=== PATIENT | male | born 1985 | race Caucasian/White ===

== ENCOUNTER 2017-12-27 21:43 | Emergency (ER) | payer BC ==
[~2017-12-27] VITALS: Ht 167.6 cm; Wt 78.5 kg
--- NOTE | 2017-12-27 21:43 | NUR ---
PT BB C/O RIGHT SHOULDER DISLOCATION WHILE EXTENDING FOR SOMETHING IN HOUSE. PT STATED "I HAD SURGERY PREVIOUSLY AND 2 MONTHS AGO I DISLOCATED IT WELL" PAIN SHARP 01/22 VSS NAD A/OX4 ABLE TO MAKE NEEDS KNOWN.
--- NOTE | 2017-12-27 21:45 | NUR ---
ER MD CHUA AT BEDSIDE FOR EVAL
--- NOTE | 2017-12-27 22:15 | NUR ---
RETORT FEEDER GROUND BONE AT BEDSIDE
[2017-12-27] MEDS ORDERED: PROPOFOL 200 MG/20 ML VIAL IV ONE (22:30)
[2017-12-27] MEDS ORDERED: IBUPROFEN 400 MG TABLET ONE (22:44)
[2017-12-27] MEDS ORDERED: IBUPROFEN 400 MG TABLET PO ONE (23:00)
--- NOTE | 2017-12-27 23:07 | NUR ---
CD GIVEN TO PATIENT ORDERED
[2017-12-27 23:08] VITALS: BP 155/94
== END 2017-12-27 23:09 | disposition home or self-care (01) ==
LOC: ER 21:47
DX: M24.411 Recurrent dislocation, right shoulder (principal)
CPT/HCPCS: 73020; 99284; A4606; Z7610

== ENCOUNTER 2019-07-02 11:17 | Emergency (ER) | payer BC, OTHER ==
[~2019-07-02] VITALS: Ht 167.6 cm; Wt 79.4 kg
--- NOTE | 2019-07-02 12:02 | NUR ---
PT CAME TO ER BED 7 C/O DIZZINESS 1x MONTH. PATIENT STATES THAT HE HAS BEEN HAVING "DIZZY SPELLS" SINCE A MONTH. YESTERDAY WAS THE WORST HE FELT DIZZY. DENIES NAUSEA VOMITING. PT STATES HE ALSO SAW A "SQUARE RED LIGHT" YESTERDAY. AAOX4. NO SOB. BREATHING EVENLY AND UNLABORED. CONNECTED TO MONITOR.
--- NOTE | 2019-07-02 12:12 | NUR ---
XRAY AT BEDSIDE
--- NOTE | 2019-07-02 12:14 | NUR ---
SEEN AND EXAMINED BY [facility]
[2019-07-02] MEDS ORDERED: IV NS 0.9% 1,000 ML BAG IV ONE (12:30)
[2019-07-02 12:31] LABS: BASOPHILS % (AUTO) 0.4 % (0.0-2.0); EOSINOPHILS % (AUTO) 3.3 % (0.0-6.0); HEMATOCRIT 43 % (39-51); HEMOGLOBIN 14.9 g/dL (13.5-17.5); LYMPHOCYTES # (AUTO) 2.5 /CMM (0.8-4.8); MEAN CORPUSCULAR HGB CONC 35 g/dl (31.0-36.0); MEAN CORPUSCULAR VOLUME 91 fL (80-96); MONOCYTES # (AUTO) 0.4 /CMM (0.1-1.30); MONOCYTES % (AUTO) 8.3 % (2.0-12.0); NEUTROPHILS # (AUTO) 2.2 /CMM (1.8-8.9); PLATELET COUNT (AUTO) 249 /CMM (150-450); RED BLOOD CELL COUNT(AUTO) 4.67 MIL/uL (4.5-6.0); WHITE BLOOD COUNT (AUTO) 5.3 K/uL (4.3-11.0)
[2019-07-02 12:39] LABS: CREATININE 0.7 mg/dL (0.6-1.3)
[2019-07-02 12:45] LABS: ALBUMIN 4.1 g/dL (3.4-5.0); BILIRUBIN,DIRECT 0.1 mg/dL (0.0-0.2); BILIRUBIN,TOTAL 0.3 mg/dL (0.2-1.0); TOTAL PROTEIN, SERUM 7.4 g/dL (6.4-8.2)
[2019-07-02] MEDS ORDERED: IOHEXOL-300 100 ML VIAL IV ONE (13:09)
[2019-07-02] MEDS ORDERED: CT SWABBABLE VALVE TRANS SET 1 EA INFUS.SET MC ONE (13:09)
[2019-07-02] MEDS ORDERED: IV NS 0.9% 250 ML IV ONE (13:09)
[2019-07-02 14:25] VITALS: BP 152/46
--- NOTE | 2019-07-02 14:30 | NUR ---
IV removed. Catheter intact and site benign. Pressure and 4x4 applied to site. No bleeding noted.Patient discharged to home in stable condition. Written and verbal after care instructions given. Patient verbalizes understanding of instruction.
== END 2019-07-02 14:42 | disposition home or self-care (01) ==
LOC: ER 11:22
DX: R42 Dizziness and giddiness (principal)
CPT/HCPCS: 36415; 70460; 80048; 80076; 85025; 93005; 96360; 99284; J7030; J7050; Q9967